=== PATIENT | female | born 1950 | race Caucasian/White ===

== ENCOUNTER 2018-11-24 19:21 | Emergency (ER) | payer MEDICARE, BC ==
--- NOTE | 2018-11-24 20:06 | CT Report ---
Reason: Fall, head trauma, eliquis 4 days ago Procedure Date: 11/24/2018 Accession Number: [id number] / [id number] Procedure: CT - HEAD WO CPT Code: FULL RESULT: EXAM: CT HEAD EXAM DATE: 11/24/2018 07:53 PM. CLINICAL HISTORY: Fall, head trauma, eliquis 4 days ago. COMPARISON: None. TECHNIQUE: Multiaxial CT images were obtained from the foramen magnum to the vertex. Reformats: Coronal and sagittal. IV contrast: None. In accordance with CT protocol optimization, one or more of the following dose reduction techniques were utilized for this exam: automated exposure control, adjustment of mA and/or KV based on patient size, or use of iterative reconstructive technique. FINDINGS: Parenchyma: There is moderate patchy hypodensity in the bilateral cerebral white matter consistent with chronic small vessel ischemic change. There are no high density lesions. There is no mass-effect. Cohen-white differentiation is intact. Extraaxial Spaces: Normal for age. No subdural or epidural collections identified. Ventricles: Normal in size and position. Sinuses and Orbits: Imaged paranasal sinuses, orbits, and mastoids show no significant abnormality. Bones: No evidence of fracture or calvarial defect. Other: None. IMPRESSION: 1. No intracranial hemorrhage or skull fracture. 2. Moderate chronic small vessel ischemic change in the bilateral cerebral white matter. No current CT evidence of acute CVA. RADIA
--- NOTE | 2018-11-24 20:44 | ED Physician Documentation ---
History of Present Illness - Stated complaint Stated Complaint: GLF/HEAD LACERATION - Chief complaint Chief Complaint: Laceration - Additonal information Additional information: This is a 68-year-old female with a history of past PE, who currently takes Eliquis only when she flies, who presents with a head injury. Patient flew here from [place] 4 days ago, she took 1 pill of Eliquis on the flight over. She has not taken any other blood thinners or aspirin since. Today she was walking and she tripped/slipped on some wet pavement hitting her head on the corner of a building. She had immediate pain over the left scalp, but she denies loss of consciousness. No weakness or numbness. She has no other pain elsewhere in her body, and is otherwise feeling well. Review of Systems GI: denies: Vomiting Skin: reports: Laceration (s) Musculoskeletal: denies: Neck pain Neurologic: denies: Generalized weakness, Focal weakness, Numbness, LOC PD PAST MEDICAL HISTORY - Past Medical History Past Medical History: Yes Cardiovascular: Hypertension, High cholesterol, Pulmonary embolism Respiratory: None Endocrine/Autoimmune: HyPOthyroidism GI: None DIE CAST DIE MAKER: None : None Psych: None Musculoskeletal: Osteoarthritis Derm: None - Past Surgical History Past Surgical History: Yes Ortho: Other /DIE CAST DIE MAKER: Hysterectomy, Oophrectomy, Other HEENT: Other - Present Medications Home Medications: Ambulatory Orders Medication Instructions Recorded Confirmed Apixaban [Eliquis] 2.5 mg PO PRN PRN 11/24/18 11/24/18 Atorvastatin Calcium 40 mg PO DAILY 11/24/18 11/24/18 Estrogens, Conjugated Cream 1 applic TOP OAW 11/24/18 11/24/18 [Premarin Cream] Levothyroxine [Synthroid] 100 mcg PO DAILY 11/24/18 11/24/18 Lisinopril 10 mg PO DAILY 11/24/18 11/24/18 - Allergies Allergies/Adverse Reactions: Allergies Allergy/AdvReac Type Severity Reaction Status Date / Time No Known Drug Allergies Allergy Verified 11/24/18 19:28 - Social History Does the pt smoke?: No Smoking Status: Never smoker Does the pt drink ETOH?: Yes ETOH Use: Wine Does the pt have substance abuse?: No - Immunizations Immunizations: TDAP >10years/unknown - POLST Patient has POLST: No PD ED PE NORMAL - Vitals Vital signs reviewed: Yes - General General: Alert and oriented X 3, No acute distress - HEENT HEENT: Atraumatic (3cm curvilinear laceration to left scalp just above the hairline. No step-offs. No facial tenderness.) - Neck Neck: No bony TTP, Other (Normal painless ROM. 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, No motor deficit, No sensory deficit, Normal speech - Psych Psych: Normal mood, Normal affect Results - Vitals Vitals: Vital Signs - 24 hr 11/24/18 11/24/18 19:28 21:51 Temperature 36.5 C Heart Rate 80 87 Respiratory 14 18 Rate Blood Pressure 199/94 H 172/99 H O2 Saturation 100 98 Oxygen O2 Source Room air - Rads (name of study) CT head WO Radiology: Other (No acute intracranial abnormality) Procedures - Laceration (location) Wound type: Curved, Into subcut fat Neurovascular status: Sensory intact, Motor intact Wound Preparation: Hibiclens, Irrigated copiously NS Skin layer closure: [place] Other: Patient tolerated well, No complications, Dressing applied Complexity: Simple PD MEDICAL DECISION MAKING - ED course Complexity details: considered differential (ICH, fracture, laceration) ED course: Pt is neurologically intact and with isolated head trauma. She did not lose consciousness, is well appearing, has no neck tenderness or signs of neck injury. She has not taken eliquis in 4 days, so it should not still be present in her system. Overall she is low risk for head bleed, after shared decision making with patient CT head WO was obtained an unremarkable. Her head laceration was cleaned and stapled with excellent wound approximation. She should have the sandy check for removal in ~10 days I discussed wound care as well as return precautions with the patient. Her questions were answered and patient was discharged in the care of family. Departure - Departure Disposition: 01 Home, Self Care Clinical Impression: Laceration Condition: Good Instructions: ED Laceration Scalp Stitch Or Stap Follow-Up: Your,PCP [Other] (For recheck and staple removal in 7-10 days) Comments: You may run water over your hair, please do not soak your scalp until your sandy are removed. Do not put any shampoo on the area, you may use a mild soap after 24 hours. Do not scrub the area. If you have signs of infection please see a provider return to emergency department as soon as possible. If you develop any confusion, or severe headache please return to care. Discharge Date/Time: 11/24/18 21:56
[2018-11-24] MEDS ORDERED: ACETAMINOPHEN 325 MG TABLET PO STA (21:34)
[2018-11-24] MEDS ORDERED: IBUPROFEN 600 MG TABLET PO STA (21:34)
[2018-11-24 21:52] VITALS: BP 172/99
== END 2018-11-24 21:56 | disposition home or self-care (01) ==
LOC: ED 19:21
DX: S01.01XA Laceration without foreign body of scalp, initial encounter (principal); W01.198A Fall on same level from slipping, tripping and stumbling with subsequent striking against other object, initial encounter; Y93.01 Activity, walking, marching and hiking; Y92.480 Sidewalk as the place of occurrence of the external cause; I10 Essential (primary) hypertension; Z86.711 Personal history of pulmonary embolism; Z79.01 Long term (current) use of anticoagulants
CPT/HCPCS: 12002; 70450; 99282; 99284; A9270